=== PATIENT | male | born 1980 | race Hispanic/Latino ===

== ENCOUNTER 2023-08-03 09:01 | Emergency (ER) | payer OTHER ==
--- OUTSIDE RECORDS SUMMARY | 2023-08-03 09:05 | XMS REPORT | Continuity of Care Document ---
:1980 Author Organization [facility] Address [address] [facility] [address] [place] [id number] Care Team Providers Name Role Phone UNKNOWN, ATTENDING Attending Clinician Unavailable KASIE ARNOLD Attending Clinician Unavailable Barbara Kwok Attending Clinician BARBARA NICHOLSON Attending Clinician Unavailable Provider, [facility] Attending Clinician Unavailable Doctor Unassigned, [place] Attending Clinician Unavailable Lab, [facility] Attending Clinician Unavailable Angi Burroughs Attending Clinician Janel Ritchie Attending Clinician JANEL DAIGLE Attending Clinician Unavailable Payers Payer Name Policy Type Policy Number Effective Date Expiration Date S ource Problems Condition Condition Condition Status Onset Resolution Last Treating Co mments Source Name Details Category Date Date Treatment Clinician Date No known No known Disease Unive rs active active ity of problems problems [facility] Allergies, Adverse Reactions, Alerts Allergy Allergy Status Severity Reaction(s) Onset Inactive Treating Comm ents Source Name Type Date Date Clinician NO KNOWN Drug Active Univers ALLERGIE Class ity of S [facility] Social History Social Habit Start Date Stop Date Quantity Comments Source Sex Assigned At Universit y of [facility] Exposure to Yes University of SARS-CoV-2 [facility] (event) Branch Alcohol intake 2020-09-18 2020-09-18 Current drinker Unive rsity of 00:00:00 00:00:00 of alcohol [facility] (finding) [place] Tobacco use and 2020-09-18 2020-09-18 Never used Universit y of exposure 00:00:00 00:00:00 [facility] History SDOH 2020-09-18 2020-09-18 3 University o f Alcohol Frequency 00:00:00 00:00:00 [place] [facility] History SDOH 2020-09-18 2020-09-18 4 [place] o f Alcohol Std 00:00:00 00:00:00 [place] [facility] History SDOH 2020-09-18 2020-09-18 4 [place] o f Alcohol Binge 00:00:00 00:00:00 [place] [facility] Smoking Status Start Date Stop Date Source Never smoker [facility] Medications Ordered Filled Start Stop Current Ordering Indication Dosage Frequency Signature Comments Components Source Medication Medication Date Date Medication? Clinician (SIG) Name Name IBUPROFEN Yes Take by Unive rs ORAL 2-03 mouth. ity of 15:28: [place] [id number] Medical Branch IBUPROFEN Yes Take by Unive rs ORAL 2-03 mouth. ity of 15:28: [place] [address] Medical Branch IBUPROFEN Yes Take by Unive rs ORAL 2-03 mouth. ity of 15:28: [place] [address] Medical Branch IBUPROFEN Yes Take by Unive rs ORAL 2-03 mouth. ity of 15:28: [place] [address] Medical Branch IBUPROFEN Yes Take by Unive rs ORAL 2-03 mouth. ity of 15:28: [place] [address] Medical Branch IBUPROFEN Yes Take by Unive rs ORAL 2-03 mouth. ity of 15:28: [place] [address] Medical Branch IBUPROFEN Yes Take by Unive rs ORAL 2-03 mouth. ity of 15:28: [address] Vital Signs Vital Name Observation Time Observation Value Comments Source Systolic blood 2020-09-18 22:41:00 149 mm[Hg] Univer sity of pressure [facility] Diastolic blood 2020-09-18 22:41:00 83 mm[Hg] Unive rsity of pressure [facility] Heart rate 2020-09-18 22:33:00 92 /min [facility] Body temperature 2020-09-18 22:33:00 37.33 Sandy [facility] Res[facility] rate 2020-09-18 22:33:00 14 /min [facility] Body height 2020-09-18 22:33:00 167.6 cm [facility] Body weight 2020-09-18 22:33:00 83.915 kg [facility] BMI 2020-09-18 22:33:00 29.86 kg/m2 [facility] Oxygen saturation in 2020-09-18 22:33:00 98 /min University Arterial blood by [facility] Pulse oximetry Branch Procedures Procedure Date / Time Performed Performing Clinician Vania e XR CHEST 2 VW 2020-09-18 23:36:16 AnaliliaHeike nietomarioal [facility] POCT RAPID STREP 2020-09-18 22:50:00 Beverly Calderón [facility] SCREEN FOR GROUP A Medical Branc h Encounters Start End Encounter Admission Attending Care Care Encounter Source Date/Time Date/Time Type Type Clinicians Facility Department ID 2021-04-21 2021-04-21 Outpatient R PONCHO, [facility] [id number] Univers 19:00:00 19:00:00 ATTENDING ity [facility] 2021-03-22 2021-03-[address] [facility] [id number] Univers 11:15:00 11:15:00 KASIE Ponce [facility] 2020-09-20 2020-09-20 Telephone [facility] [id number] Univers 00:00:00 00:00:00 [facility] [id number] it [facility] [id number] [facility] [id number] [facility] Primary & 370 Branch Specialty Care 2020-09-18 2020-09-18 Hospital [facility] [id number] Univers 17:12:07 23:59:00 Encounter [facility] [place] [id number] [id number] [facility] [id number] [facility] 807 Branch 2020-09-18 2020-09-18 [facility] [id number] Univers 19:40:00 19:40:00 [facility] 2020-09-18 2020-09-18 Urgent Provider, [facility] [id number] Univers 16:27:22 16:47:22 Care Barbara [facility] [id number] ity of [place] [id number] [facility] as Professio [phone] [address] Office [facility] One 2020-09-18 2020-09-18 Letter Doctor SANCHEZ [id number] Univers 00:00:00 00:00:00 (Out) Unassigned, ARLYN [id number] ity of [place] [facility] [id number] [facility] as [phone] [address] 2020-07-12 2020-07-12 Laboratory Lab, [facility] Fam Pob I [facility] [id number] Univers 09:06:36 09:26:36 Only Angi [facility] [id number] ity of [place] [id number] [employer] as Professio [phone] [address] Office [facility] 2020-07-12 2020-07-[address] [facility] [id number] Univers 09:00:00 09:00:00 ity of [facility] 2020-06-19 2020-06-19 Laboratory Lab, [facility] 1.2. [id number] Univers 16:53:45 17:13:45 Only Janel Daigle [employer] [id number] ity of [place] [id number] [employer] as Professio [phone] [address] Office [facility] 2020-06-19 2020-06-[address] [facility] [id number] Univers 17:00:00 17:00:00 JANEL ity of [facility] 2020-06-19 2020-06-19 Letter Doctor SANCHEZ [id number] Univers 00:00:00 00:00:00 (Out) Unassigned, ARLYN [id number] ity of [place] [facility] [id number] [employer] as [phone] [address] Results Test Description Test Time Test Comments Results Result Sourc e Comments XR CHEST 2 VW 2020-09-01 No acute University of 0 cardiopulmonary [place] [facility] 06:49:38 process. Preliminary Bran ch Report Dictated by Resident: Micheal Lou MD., have reviewed this study and agree with theabove report. EXAM: XR CHEST 2 VW HISTORY: chest tightness TECHNIQUE: PA and lateral views of the chest COMPARISON: None FINDINGS: The lungs are clear without focal consolidation. No pleural effusion or pneumothorax is identified. The heart size is normal. No acute bony abnormality. [facility], Radiant Results Inft User - 09/19/2020 12:50 AM CSTEXAM: XR CHEST 2 VWHISTORY: chest tightness TECHNIQUE: PA and lateral views of the chestCOMPARISON: None FINDINGS:The lungs are clear without focal consolidation.No pleural effusion or pneumothorax is identified.The heart size is normal.No acute bony abnormality.IMPRESSI ONNo acute cardiopulmonary process.Preliminary Report Dictated by Resident: Micheal Shah MD., have reviewed this study and agree with theabove report. POCT RAPID STREP SCREEN FOR GROUP A 2020-09-18 22:57:00 Test Item Value Reference Range Interpretation Comme nts POCT GP A STREP (test code = neg Negative - Negative 82092-9) MOOSE (test code = MOOSE) accurate development and interpretation of all internal controls Lab Interpretation (test code = Normal 78635-6) [facility]
--- NOTE | 2023-08-03 09:46 | RAD REPORT ---
EXAM DESCRIPTION: CT - Spine Lumbar Wo Con - 08/03/2023 9:32 am CLINICAL HISTORY: back pain, radiates down right leg COMPARISON: No comparisons TECHNIQUE: Axial noncontrast CT imaging of the lumbar spine was performed with coronal and sagittal re-formatted images. All CT scans are performed using dose optimization technique as appropriate and may include automated exposure control or mA/KV adjustment according to patient size. FINDINGS: No acute lumbar spine fracture seen. No aggressive marrow pattern or malalignment. Broad-b ased disc bulge present at L5-S1. This is right eccentric. This appears to compress the traversing ri ght S1 nerve root. Paraspinal tissues are normal in thickness. No paraspinal abscess or hematoma seen. Intervertebral disc disease assessment is inherently limited by CT. Within these limitations, no high -grade canal stenosis suspected. IMPRESSION: Broad-based disc bulge which is right eccentric at L5-S1 and compresses the traversing r ight S1 nerve root and is presumably the source of the patient's radiculopathy. No fracture identifie d .
[2023-08-03] MEDS ORDERED: KETOROLAC 30 MG/ML INJ ONE (10:36)
[2023-08-03] MEDS ORDERED: GABAPENTIN 300 MG CAP ONE (10:36)
[2023-08-03] MEDS ORDERED: predniSONE 20 MG TAB ONE (10:36)
--- NOTE | 2023-08-03 10:37 | EDPHYS ---
Physician Documentation [facility] Name: Behzad Pacheco Jr Age: 43 yrs Sex: Male : 1980 Arrival Date: 08/03/2023 Time: 09:01 Bed IW1 Private MD: ED Physician Elton Jason HPI: 08/03 10:32 This 43 yrs old Male presents to ER via Ambulatory with complaints of Leg Pain rn - right. 10:32 The patient presents with pain. The complaints affect the right gluteal fold, right rn hamstring and posterior aspect of right knee. Onset: The symptoms/episode began/occurred. 10:34 Onset: The symptoms/episode began/occurred 1 week(s) ago. Modifying factors: The rn symptoms are alleviated by nothing. the symptoms are aggravated by movement. Severity of symptoms: At their worst the symptoms were moderate, in the emergency department the symptoms are unchanged. The patient has not experienced similar symptoms in the past. Patient reports was having low back pain the last couple weeks, went to physical therapist and back pain improved, now having pain shooting down right leg, starts at right buttocks and goes down to back of right knee. No weakness. No bowel or bladder problems.. Historical: - Allergies: 09:16 No Known Allergies; hb - PMHx: 09:16 None; hb - Immunization history:: Adult Immunizations up to date. - Social history:: Smoking status: Patient denies any tobacco usage or history of. - Family history:: not pertinent. - Hospitalizations: : No recent hospitalization is reported. ROS: 10:34 Constitutional: Negative for fever, chills, and weight loss, Cardiovascular: Negative rn for chest pain, palpitations, and edema, Respiratory: Negative for shortness of breath, cough, wheezing, and pleuritic chest pain, Abdomen/GI: Negative for abdominal pain, nausea, vomiting, diarrhea, and constipation, Back: Positive for low back pain MS/Extremity: Negative for injury and deformity, Skin: Negative for injury, rash, and discoloration, Neuro: Negative for headache, weakness, numbness, tingling, and seizure, Exam: 10:34 Constitutional: This is a well developed, well nourished patient who is awake, alert, rn and in no acute distress. Ambulatory to room without difficulty or assistance. Slight antalgic gait Back: No spinal tenderness. MS/ Extremity: Pulses equal, no cyanosis. Neurovascular intact. Full, normal range of motion. Equal circumference. Neuro: Awake and alert, GCS 15, oriented to person, place, time, and situation. Cranial nerves II-XII grossly intact. Motor strength 5/5 in all extremities. Sensory grossly intact. Cerebellar exam normal. Antalgic gait Vital Signs: 09:16 BP 148 / 88; Pulse 69; Resp 16; Temp 98.3; Pulse Ox 100% on R/A; Weight 90.72 kg; hb Height 5 ft. 6 in. ; Pain 10; 09:16 Body Mass Index 32.28 (90.72 kg, 167.64 cm) hb 09:16 Pain Scale: Adult hb MDM: 09:11 Patient medically screened. rn 10:34 Differential diagnosis: Lumbar sacral radiculopathy. Data reviewed: vital signs, nurses rn notes, radiologic studies, CT scan, and as a result, I will discharge patient. Counseling: I had a detailed discussion with the patient and/or guardian regarding the historical points, exam findings, and any diagnostic results supporting the discharge/admit diagnosis, radiology results, the need for outpatient follow up, to return to the emergency department if symptoms worsen or persist or if there are any questions or concerns that arise at home. Special discussion: I discussed with the patient/guardian in detail that at this point there is no indication for admission to the hospital. It is understood, however, that if the symptoms persist or worsen the patient needs to return immediately for re-evaluation. Based on the history and exam findings, there is no indication for further emergent testing or inpatient evaluation. I discussed with the patient/guardian the need to see the back specialist for further evaluation of the symptoms. I discussed with the patient/guardian the need to see the primary care provider for further evaluation of the symptoms. ED course: CT shows moderate disc bulge at L5-S1. Consistent with his symptoms. Results given to patient. Will follow-up with PCP and back specialist. I have personally reviewed all of the results, including but not limited to imaging deemed necessary to safely discharge this patient at this time. All results given to and printed out for patient. I personally went over all the results with the patient and answered all questions. Patient will follow-up with PCP and or specialist as discussed. Return precautions given and understood.. 08/03 09:20 Order name: CT Lumbar Spine Wo Con; Complete Time: 09:56 rn Administered Medications: 10:27 Drug: predniSONE PO 60 mg PO once Route: PO; iw 10:30 Drug: Gabapentin PO 300 mg PO once Route: PO; iw 10:30 Drug: Ketorolac IM 30 mg IM once Route: IM; Site: right deltoid; iw Disposition Summary: 08/03/23 10:37 Discharge Ordered Notes: Location: Home rn Problem: new rn Symptoms: have improved rn Condition: Stable rn Diagnosis - Radiculopathy, lumbosacral region rn Followup: rn - With: Private Physician - When: As needed - Reason: Recheck today's complaints, Re-evaluation by your physician Discharge Instructions: - Discharge Summary Sheet rn - Lumbosacral Radiculopathy rn Forms: - Medication Reconciliation Form rn - Thank You Letter rn - Antibiotic consultants intern - Prescription Opioid Use rn - Patient Portal Instructions rn - Leadership Thank You Letter rn - Work release form Prescriptions: - gabapentin 100 mg Oral capsule - take 1 capsule ORAL route every 12 hours for 10 days; 20 capsule; Refills: 0, rn Product Selection Permitted - Medrol (Arvind) 4 mg Oral Tablets, Dose Pack - take 1 tablet ORAL route as directed - follow package instructions; 1 packet; rn Refills: 0, Product Selection Permitted Signatures: Dispatcher [employer] Lucrecia Lozada, RN RN Elton Jason MD MD rn Baxter, Heather, RN RN hb
--- NOTE | 2023-08-03 10:37 | ER ---
Nurse's Notes [facility] Name: Behzad Pacheco Jr Age: 43 yrs Sex: Male : 1980 Arrival Date: 08/03/2023 Time: 09:01 Bed IW1 Private MD: Diagnosis: Radiculopathy, lumbosacral region Presentation: 08/03 09:15 Chief complaint: Back pain that radiates to right leg x 1 week. Coronavirus screen: At hb this time, the client does not indicate any symptoms associated with coronavirus-19. Ebola Screen: No symptoms or risks identified at this time. Initial Sepsis Screen: Does the patient meet any 2 criteria? No. Patient's initial sepsis screen is negative. Does the patient have a suspected source of infection? No. Patient's initial sepsis screen is negative. Risk Assessment: Do you want to hurt yourself or someone else? Patient reports no desire to harm self or others. 09:15 Method Of Arrival: Ambulatory hb 09:16 Onset of symptoms was July 27, 2023. hb 09:16 Acuity: SHARON 4 hb Historical: - Allergies: 09:16 No Known Allergies; hb - PMHx: 09:16 None; hb - Immunization history:: Adult Immunizations up to date. - Social history:: Smoking status: Patient denies any tobacco usage or history of. - Family history:: not pertinent. - Hospitalizations: : No recent hospitalization is reported. Screenin:27 [facility] ED Fall Risk Assessment (Adult) History of falling in the last 3 months, iw including since admission No falls in past 3 months (0 pts). Abuse screen: Denies threats or abuse. Denies injuries from another. Nutritional screening: No deficits noted. Tuberculosis screening: No symptoms or risk factors identified. Assessment: 10:27 General: Appears uncomfortable, Behavior is calm, cooperative. Pain: Complains of pain iw in lumbar area, left low back and right low back. Neuro: Level of Consciousness is awake, alert, obeys commands, Oriented to person, place, time, situation. Cardiovascular: Patient's skin is warm and dry. Respiratory: Respiratory effort is even, unlabored, Respiratory pattern is regular. Derm: Skin is intact, is healthy with good turgor. Vital Signs: 09:16 BP 148 / 88; Pulse 69; Resp 16; Temp 98.3; Pulse Ox 100% on R/A; Weight 90.72 kg; hb Height 5 ft. 6 in. ; Pain 06/09; 09:16 Body Mass Index 32.28 (90.72 kg, 167.64 cm) hb 09:16 Pain Scale: Adult hb ED Course: 09:04 Patient arrived in ED. im 09:11 Elton Jason MD is Attending Physician. rn 09:16 Arm band placed on. hb 09:20 Triage completed. hb 09:33 CT Lumbar Spine Wo Con In Process Unspecified. EDMS 10:27 No provider procedures requiring assistance completed. Patient did not have IV access iw during this emergency room visit. 10:28 Lucrecia Vilchis RN is Primary Nurse. iw Administered Medications: 10:27 Drug: predniSONE PO 60 mg PO once Route: PO; iw 10:30 Drug: Gabapentin PO 300 mg PO once Route: PO; iw 10:30 Drug: Ketorolac IM 30 mg IM once Route: IM; Site: right deltoid; iw Medication: 10:27 VIS not applicable for this client. iw Outcome: 10:37 Discharge ordered by . rn 10:58 Patient left the ED. iw Signatures: Dispatcher [employer] EDMS Lucrecia Vilchis RN RN Elton Jason MD MD rn Baxter, Heather, RN RN Joanna Abraham
[2023-08-03 11:53] VITALS: BP 148/88; TEMP 98.3; O2SAT 100
== END 2023-08-03 10:58 | disposition home or self-care (01) ==
LOC: ER 09:01
DX: M54.17 Radiculopathy, lumbosacral region (principal)
CPT/HCPCS: 72131; 96372; 99284; J7512